=== PATIENT | female | born 1960 | race Caucasian/White ===

== ENCOUNTER 2018-12-02 21:42 | Emergency (ER) | payer OTHER ==
[~2018-12-02] VITALS: Ht 162.6 cm; Wt 45.4 kg
[~2018-12-02 21:42] MED LIST: FAMO-12 PO; FERR27TA2 PO; FOLI1TAB6 PO; GABA300C10 PO; LORA0.5T12 PO; PANT40TA2 PO
[2018-12-02] MEDS ORDERED: HYDROmorphone HCL 2 MG/ML VL IV ONE (22:00)
[2018-12-02] MEDS ORDERED: ONDANSETRON HCL 4 MG/2 ML VIAL IV ONE (22:00)
[2018-12-02 22:21] LABS: Basophils # (auto) 0 uL; Eosinophils # (auto) 0 uL; Eosinophils % (auto) 0.9 % (0.0-7.0); Lymphocytes # (auto) 0.8 uL; Monocytes # (auto) 0.4 uL; Neutrophils # (auto) 3.5 uL; Red Blood Cells 3.26 10^6/uL (4.0-5.20); White Blood Cell 4.7 10^3/uL (4.4-10.8)
[2018-12-02 22:22] LABS: Basophils % (auto) 0.4 % (0.0-2.0); Hematocrit 34.7 % (36.0-46.0); Hemoglobin 11.8 g/dL (12.2-16.2); Lymphocytes % (auto) 16.2 % (10.0-50.0); Mean Corpuscular Hemoglobin 36.1 pg (28.0-32.0); Mean Corpuscular Hgb Conc. 33.9 g/dL (32.0-36.0); Mean Corpuscular Volume 106.3 fL (80.0-100.0); Monocytes % (auto) 7.9 % (0.0-12.0); Neutrophils % (auto) 74.6 % (37.0-80.0); Platelet Count (auto) 128 10^3/uL (140-450); Red Cell Distribution Width 13.4 % (11.8-14.3)
[2018-12-02 22:51] LABS: Albumin 3.4 g/dL (3.4-5.0); Calcium 8.4 mg/dL (8.5-10.1)
[2018-12-02 22:55] LABS: BUN/Creatinine Ratio 22.9; Bilirubin, Total 0.3 mg/dL (0.2-1.0); Total Protein 6.8 g/dL (6.4-8.2)
[2018-12-02 23:15] LABS: Urine Bacteria NONE SEEN /hpf (None Seen); Urine Blood Negative /uL (Negative); Urine Hyaline Cast FEW /lpf (0 - 2); Urine Mucus FEW (None Seen); Urine Specific Gravity 1.019 (1.001-1.035); Urine WBC 1 /hpf (0 - 5)
[2018-12-02] MEDS ORDERED: SODIUM CHLORIDE 0.9% 500 ML IV ONE (23:45)
[2018-12-03] MEDS ORDERED: SODIUM CHLORIDE 0.9% 1,000 ML IV ONE (00:30)
[2018-12-03] MEDS ORDERED: MORPHINE SULFATE 4 MG/ML SYR/VIAL IV ONE ×2 (04:00→08:00)
[2018-12-03] MEDS ORDERED: ONDANSETRON HCL 4 MG/2 ML VIAL IV ONE ×2 (04:00→08:00)
[2018-12-03 07:50] VITALS: BP 109/62
== END 2018-12-03 08:26 | disposition short-term general hospital (02) ==
LOC: EDBD 21:42 → ER 21:42
DX: S72.491A Other fracture of lower end of right femur, initial encounter for closed fracture (principal); F17.210 Nicotine dependence, cigarettes, uncomplicated; Z88.0 Allergy status to penicillin; Z88.2 Allergy status to sulfonamides; Z91.040 Latex allergy status; W19.XXXA Unspecified fall, initial encounter; Y93.89 Activity, other specified; Y92.89 Other specified places as the place of occurrence of the external cause; Y99.8 Other external cause status
CPT/HCPCS: 36415; 51702; 73552; 80053; 81001; 85025; 93005; 96374; 96375; 96376; 99285; J1170; J2270; J2405; J7030; J7040

== ENCOUNTER 2020-06-06 13:00 | Emergency (ER) | payer OTHER ==
[2020-06-06] VITALS (8 sets, daily range): BP systolic 93–119; BP diastolic 60–75
[~2020-06-06] VITALS: Ht 162.6 cm; Wt 44.5 kg
[~2020-06-06 13:00] MED LIST changes: -LORA0.5T12 PO; +LORA0.5T20 PO
[2020-06-06 13:53] LABS: Basophils # (auto) 0 10 ^3/uL (0-0.2); Eosinophils # (auto) 0 10 ^3/uL (0-0.8); Lymphocytes # (auto) 0.2 10 ^3/uL (0.4-5.4); Monocytes # (auto) 0.2 10 ^3/uL (0-1.3); Platelet Count (auto) 146 10^3/uL (140-450); White Blood Cell 3.8 10^3/uL (4.4-10.8)
[2020-06-06 13:55] LABS: Basophils % (auto) 0.7 % (0.0-2.0); Hematocrit 21.9 % (36.0-46.0); Lymphocytes % (auto) 5.1 % (10.0-50.0); Mean Corpuscular Hemoglobin 35.2 pg (28.0-32.0); Mean Corpuscular Hgb Conc. 31.8 g/dL (32.0-36.0); Mean Corpuscular Volume 110.8 fL (80.0-100.0); Monocytes % (auto) 4.8 % (0.0-12.0); Neutrophils # (auto) 3.3 10 ^3/uL (1.6-8.6); Neutrophils % (auto) 88.4 % (37.0-80.0); Nucleated Red Blood Cells % 0.1 %; Red Blood Cells 1.98 10^6/uL (4.0-5.20); Red Cell Distribution Width 18.8 % (11.8-14.3)
[2020-06-06 14:19] LABS: Albumin 2.7 g/dL (3.4-5.0); Anion Gap 9 (5-15); Blood Urea Nitrogen 7 mg/dL (7-18); Calcium 7.9 mg/dL (8.5-10.1); Carbon Dioxide 28 mmol/L (21-32); Chloride 108 mmol/L (98-107); Glucose 119 mg/dL (74-106); Magnesium 1.6 mg/dL (1.6-2.6); Sodium 145 mmol/L (136-145)
[2020-06-06 14:25] LABS: Alanine Aminotransferase 40 U/L (13-56); Alkaline Phosphatase 131 U/L (45-117); Aspartate Aminotransferase 109 U/L (15-37); BUN/Creatinine Ratio 19.4; Bilirubin, Total 0.4 mg/dL (0.2-1.0); GFR African American 235 mL/min; GFR Non-African American 194 mL/min; Total Protein 6.1 g/dL (6.4-8.2)
[2020-06-06 15:17] LABS: Potassium 2.8 mmol/L (3.5-5.1)
[2020-06-06] MEDS ORDERED: POTASSIUM EFFERVESENT TAB 25 MEQ PO ONE (15:30)
[2020-06-06 16:14] LABS: Urine Bacteria NONE SEEN /hpf (None Seen); Urine Blood Negative /uL (Negative); Urine Hyaline Cast FEW /lpf (0 - 2); Urine Mucus FEW (None Seen); Urine Specific Gravity 1.016 (1.001-1.035); Urine WBC 1 /hpf (0 - 5)
[2020-06-06 21:55] LABS: Basophils # (auto) 0 10 ^3/uL (0-0.2); Eosinophils # (auto) 0 10 ^3/uL (0-0.8); Hematocrit 25.7 % (36.0-46.0); Hemoglobin 8.9 g/dL (12.2-16.2); Lymphocytes # (auto) 0.2 10 ^3/uL (0.4-5.4); Monocytes # (auto) 0.3 10 ^3/uL (0-1.3)
[2020-06-06 21:57] LABS: Basophils % (auto) 0.5 % (0.0-2.0); Eosinophils % (auto) 0.3 % (0.0-7.0); Lymphocytes % (auto) 4.5 % (10.0-50.0); Mean Corpuscular Hemoglobin 34.1 pg (28.0-32.0); Mean Corpuscular Hgb Conc. 34.5 g/dL (32.0-36.0); Monocytes % (auto) 7.6 % (0.0-12.0); Neutrophils # (auto) 3.5 10 ^3/uL (1.6-8.6); Neutrophils % (auto) 87.1 % (37.0-80.0); Nucleated Red Blood Cells % 0.1 %; Platelet Count (auto) 86 10^3/uL (140-450)
[2020-06-06 22:03] LABS: Red Cell Distribution Width 20.7 % (11.8-14.3)
== END 2020-06-06 22:38 | disposition home or self-care (01) ==
LOC: ER 13:00
DX: D64.9 Anemia, unspecified (principal); E87.6 Hypokalemia; R07.9 Chest pain, unspecified; F17.210 Nicotine dependence, cigarettes, uncomplicated; Z88.0 Allergy status to penicillin; Z20.822 Contact with and (suspected) exposure to COVID-19; Z88.2 Allergy status to sulfonamides
CPT/HCPCS: 36415; 36430; 71045; 80053; 81001; 83735; 84484; 85025; 86850; 86900; 86901; 86920; 87426; 93005; 99285; C9803; P9016; U0003

== ENCOUNTER 2020-07-05 11:12 | Inpatient (IN) | payer OTHER ==
[~2020-07-05] VITALS: Ht 162.6 cm; Wt 63.9 kg
[2020-07-05] MEDS ORDERED: SODIUM CHLORIDE 0.9% 500 ML IV ONE (11:30)
[2020-07-05] MEDS ORDERED: MORPHINE SULFATE 4 MG/ML SYR/VIAL IV ONE (11:30)
[2020-07-05] MEDS ORDERED: ONDANSETRON HCL 4 MG/2 ML VIAL IV ONE (11:30)
[2020-07-05 12:09] LABS: Albumin 1.9 g/dL (3.4-5.0); BUN/Creatinine Ratio 60.9; Calcium 7.7 mg/dL (8.5-10.1); Magnesium 1.7 mg/dL (1.6-2.6)
[2020-07-05 12:17] LABS: Bilirubin, Total 3.1 mg/dL (0.2-1.0)
[2020-07-05 12:19] LABS: Platelet Count (auto) 104 10^3/uL (140-450)
[2020-07-05 12:23] LABS: Hematocrit 18.1 % (36.0-46.0); Mean Corpuscular Hemoglobin 36.3 pg (28.0-32.0); Mean Corpuscular Hgb Conc. 34.5 g/dL (32.0-36.0); Mean Corpuscular Volume 105.1 fL (80.0-100.0); Red Blood Cells 1.72 10^6/uL (4.0-5.20); White Blood Cell 23.3 10^3/uL (4.4-10.8)
[2020-07-05 12:24] LABS: INR 1.46 (0.9-1.15); Partial Thromboplastin Time 37.4 sec (23.0-31.2)
[2020-07-05 12:25] LABS: Potassium 2.9 mmol/L (3.5-5.1)
[2020-07-05 12:26] LABS: Basophils % (manual) 0 (0.0-2.0); Blast Cells 0; Eosinophils % (manual) 0 (0-7); Hemoglobin 6.2 g/dL (12.2-16.2); Myelocytes % 0; Promyelocytes % 0; Reactive Lymphocytes 0
[2020-07-05] MEDS ORDERED: POTASSIUM CHL 20MEQ/100ML 100 ML IV ONE (12:30)
[2020-07-05] MEDS ORDERED: SODIUM CHLORIDE 0.9% 1,000 ML IV SCH (13:00)
[2020-07-05] MEDS ORDERED: VANCOMYCIN PER PHARMACY 0 MG IV SCH (13:00)
[2020-07-05] MEDS ORDERED: MORPHINE SULF INJ 2 MG/ML SYRINGE 1ML IV PRN (13:00)
[2020-07-05] MEDS ORDERED: NITROGLYCERIN 0.4 MG SL TAB SL PRN (13:00)
[2020-07-05] MEDS ORDERED: SODIUM CHLORIDE 0.9% 1,000 ML IV ONE ×2 (13:15→16:15)
[2020-07-05 13:18] LABS: Band Neutrophils % (manual) 4; Lymphocytes % (manual) 6 (10.0-50.0); Metamyelocytes % 1; Monocytes % (manual) 1 (0-12)
[2020-07-05 14:39] VITALS: BP 77/44
[2020-07-05 14:57] VITALS: BP 71/43
[2020-07-05] MEDS ORDERED: NOREPINEPHRINE 8 MG/250ML KIT 250 ML IV ONE (14:58)
[2020-07-05] MEDS: NOREPINEPHRINE 8 MG/250ML KIT 250 ML IV SCH (15:03)
[2020-07-05] MEDS: levoFLOXacin 750MG 150 ML IV SCH (15:21)
[2020-07-05] MEDS: VANCOMYCIN 750mg/250ml 250 ML IV SCH ×2 (15:59→23:00)
[2020-07-05 16:22] VITALS: BP 85/51
[2020-07-05 16:31] VITALS: BP 85/49
[2020-07-05] MEDS: SODIUM CHLORIDE 0.9% 1,000 ML IV SCH (16:56)
[2020-07-05 17:23] LABS: Urine Bacteria NONE SEEN /hpf (None Seen); Urine Blood Negative /uL (Negative); Urine Specific Gravity 1.012 (1.001-1.035); Urine WBC <1 /hpf (0 - 5)
[2020-07-05 18:40] VITALS: BP 94/60
[2020-07-05 22:17] LABS: Hematocrit 27.9 % (36.0-46.0); Hemoglobin 9.6 g/dL (12.2-16.2)
[2020-07-06] VITALS (70 sets, daily range): BP systolic 90–132; BP diastolic 53–83
[2020-07-06] MEDS ORDERED: VANCOMYCIN 1GM/250ML 250 ML IV ONE (00:11)
[2020-07-06] MEDS: FERROUS SULFATE 325 MG TAB PO SCH ×3 (00:12→22:40)
[2020-07-06] MEDS: SODIUM CHLORIDE 0.9% 1,000 ML IV SCH ×3 (00:33→16:29)
[2020-07-06] MEDS: ONDANSETRON HCL 4 MG/2 ML VIAL IV PRN ×2 (00:39→08:26)
[2020-07-06] MEDS: VANCOMYCIN 750mg/250ml 250 ML IV SCH ×3 (06:51→15:00)
[2020-07-06 08:16] LABS: Basophils # (auto) 0.1 10 ^3/uL (0-0.2); Basophils % (auto) 0.3 % (0.0-2.0); Eosinophils # (auto) 0 10 ^3/uL (0-0.8); Hematocrit 31.2 % (36.0-46.0); Hemoglobin 10.6 g/dL (12.2-16.2); Lymphocytes # (auto) 0.2 10 ^3/uL (0.4-5.4); Lymphocytes % (auto) 0.8 % (10.0-50.0); Mean Corpuscular Hemoglobin 31.8 pg (28.0-32.0); Mean Corpuscular Hgb Conc. 34.1 g/dL (32.0-36.0); Mean Corpuscular Volume 93.4 fL (80.0-100.0); Monocytes % (auto) 4.1 % (0.0-12.0); Neutrophils # (auto) 23.5 10 ^3/uL (1.6-8.6); Neutrophils % (auto) 94.8 % (37.0-80.0); Nucleated Red Blood Cells % 0.8 %; Platelet Count (auto) 66 10^3/uL (140-450); Red Blood Cells 3.35 10^6/uL (4.0-5.20); White Blood Cell 24.8 10^3/uL (4.4-10.8)
[2020-07-06 08:17] LABS: Red Cell Distribution Width 21.3 % (11.8-14.3)
[2020-07-06] MEDS: NOREPINEPHRINE 8 MG/250ML KIT 250 ML IV SCH (08:27)
[2020-07-06 08:31] LABS: BUN/Creatinine Ratio 33.3; Calcium 6.4 mg/dL (8.5-10.1)
[2020-07-06 08:33] LABS: Potassium 2.9 mmol/L (3.5-5.1)
[2020-07-06] MEDS: levoFLOXacin 750MG 150 ML IV SCH (09:23)
[2020-07-06] MEDS: POTASSIUM CHL 20MEQ/100ML 100 ML IV SCH ×3 (09:29→14:26)
[2020-07-06] MEDS ORDERED: SODIUM CHLORIDE 0.9% 2,000 ML IV ONE (12:15)
[2020-07-06] MEDS ORDERED: ONDANSETRON HCL 4 MG/2 ML VIAL IV PRN (12:15)
[2020-07-06] MEDS ORDERED: LORazepam 0.5 MG TAB PO PRN (12:15)
[2020-07-06] MEDS: guaiFENesin-DM 100/10mg/5ml SYR PO PRN (22:39)
[2020-07-07] VITALS (16 sets, daily range): BP systolic 95–112; BP diastolic 62–84
[2020-07-07] MEDS: SODIUM CHLORIDE 0.9% 1,000 ML IV SCH ×4 (01:52→21:52)
[2020-07-07 04:02] LABS: Basophils # (auto) 0 10 ^3/uL (0-0.2); Eosinophils # (auto) 0 10 ^3/uL (0-0.8); Hemoglobin 10.1 g/dL (12.2-16.2); Lymphocytes # (auto) 0.2 10 ^3/uL (0.4-5.4); Monocytes # (auto) 1.1 10 ^3/uL (0-1.3); Nucleated Red Blood Cells % 0.1 %
[2020-07-07 04:05] LABS: Basophils % (auto) 0.1 % (0.0-2.0); Hematocrit 29.2 % (36.0-46.0); Lymphocytes % (auto) 0.6 % (10.0-50.0); Mean Corpuscular Hemoglobin 32.8 pg (28.0-32.0); Mean Corpuscular Hgb Conc. 34.6 g/dL (32.0-36.0); Monocytes % (auto) 4.1 % (0.0-12.0); Neutrophils # (auto) 24.8 10 ^3/uL (1.6-8.6); Neutrophils % (auto) 95.2 % (37.0-80.0); Red Blood Cells 3.07 10^6/uL (4.0-5.20); White Blood Cell 26.1 10^3/uL (4.4-10.8)
[2020-07-07 04:18] LABS: Red Cell Distribution Width 23.3 % (11.8-14.3)
[2020-07-07 04:21] LABS: BUN/Creatinine Ratio 38.7; Calcium 6.4 mg/dL (8.5-10.1); Potassium 3.4 mmol/L (3.5-5.1)
[2020-07-07 07:35] LABS: Platelet Count (auto) 37 10^3/uL (140-450)
[2020-07-07] MEDS ORDERED: SODIUM CHLORIDE 0.9% 1,000 ML IV ONE ×2 (07:45→18:15)
[2020-07-07] MEDS ORDERED: metroNIDAZOLE 500MG/100ML 100 ML IV SCH (08:00)
[2020-07-07] MEDS: levoFLOXacin 750MG 150 ML IV SCH (10:26)
[2020-07-07] MEDS: FERROUS SULFATE 325 MG TAB PO SCH ×2 (10:26→18:00)
[2020-07-07] MEDS: VANCOMYCIN 750mg/250ml 250 ML IV SCH (13:26)
[2020-07-07] MEDS: guaiFENesin-DM 100/10mg/5ml SYR PO PRN (21:34)
[2020-07-08 05:00] VITALS: BP 128/85
[2020-07-08] MEDS: VANCOMYCIN 750mg/250ml 250 ML IV SCH ×2 (05:00→13:00)
[2020-07-08 07:02] LABS: Hematocrit 32.1 % (36.0-46.0); Hemoglobin 10.8 g/dL (12.2-16.2); Mean Corpuscular Hemoglobin 32.6 pg (28.0-32.0); Mean Corpuscular Hgb Conc. 33.7 g/dL (32.0-36.0); Mean Corpuscular Volume 96.6 fL (80.0-100.0); Platelet Count (auto) 32 10^3/uL (140-450); Red Blood Cells 3.32 10^6/uL (4.0-5.20); White Blood Cell 29.8 10^3/uL (4.4-10.8)
[2020-07-08 07:07] LABS: Basophils % (manual) 0 (0.0-2.0); Blast Cells 0; Eosinophils % (manual) 0 (0-7); Metamyelocytes % 0; Myelocytes % 0; Promyelocytes % 0; Reactive Lymphocytes 0
[2020-07-08 07:15] LABS: Calcium 6.5 mg/dL (8.5-10.1); Potassium 3.6 mmol/L (3.5-5.1)
[2020-07-08 08:31] LABS: Band Neutrophils % (manual) 4; Lymphocytes % (manual) 2 (10.0-50.0); Monocytes % (manual) 3 (0-12)
[2020-07-08 09:00] VITALS: BP 109/69
[2020-07-08] MEDS: FERROUS SULFATE 325 MG TAB PO SCH ×2 (09:17→18:00)
[2020-07-08] MEDS: levoFLOXacin 750MG 150 ML IV SCH ×2 (09:19→10:57)
[2020-07-08] MEDS: SODIUM CHLORIDE 0.9% 1,000 ML IV SCH ×2 (09:19→16:15)
[2020-07-08] MEDS ORDERED: VANCOMYCIN PER PHARMACY 0 MG IV ONE (11:15)
[2020-07-08 13:00] VITALS: BP_SYST 109; BP_SYST 114; BP_DIAS 69; BP_DIAS 74
[2020-07-08 16:49] VITALS: BP 105/70
[2020-07-08 17:30] VITALS: BP 105/70
[2020-07-09] MEDS ORDERED: VANCOMYCIN 750mg/250ml 250 ML IV SCH (07:00)
== END 2020-07-08 18:30 | disposition hospice, home (50) | DRG 720 ==
LOC: ER 11:12 → TELE-EAST 11:13 → TELE 22:03 → ICU WEST 07-06 01:56 → TELE-WESTW 07-07 06:10
PROVIDERS: ADMIT Internal Medicine; ATTEND Internal Medicine
PROC: 30233N1 Transfusion of Nonautologous Red Blood Cells into Peripheral Vein, Percutaneous Approach (ICD-10-PCS; principal; 2020-07-05)
DX: A41.9 Sepsis, unspecified organism (principal); R65.21 Severe sepsis with septic shock; E44.0 Moderate protein-calorie malnutrition; D64.9 Anemia, unspecified; J18.9 Pneumonia, unspecified organism; F41.1 Generalized anxiety disorder; E87.6 Hypokalemia; J44.0 Chronic obstructive pulmonary disease with (acute) lower respiratory infection; E87.8 Other disorders of electrolyte and fluid balance, not elsewhere classified; C14.0 Malignant neoplasm of pharynx, unspecified; E86.0 Dehydration; C02.9 Malignant neoplasm of tongue, unspecified; E87.1 Hypo-osmolality and hyponatremia; K21.9 Gastro-esophageal reflux disease without esophagitis; F17.210 Nicotine dependence, cigarettes, uncomplicated; R64 Cachexia; Z20.822 Contact with and (suspected) exposure to COVID-19; Z51.5 Encounter for palliative care; Z85.810 Personal history of malignant neoplasm of tongue; Z92.21 Personal history of antineoplastic chemotherapy; Z92.3 Personal history of irradiation; Z88.0 Allergy status to penicillin; Z88.2 Allergy status to sulfonamides; Z91.040 Latex allergy status; Z68.24 Body mass index [BMI] 24.0-24.9, adult
CPT/HCPCS: 36415; 51702; 71045; 71250; 80048; 80053; 80202; 81001; 83605; 83735; 84484; 85007; 85014; 85018; 85025; 85027; 85610; 85730; 86850; 86900; 86901; 86920; 87040; 87081; 87426; 93005; 96361; 96374; 97163; 99291; G0378; J1956; J2405; J3480; J3490